=== PATIENT | female | born 1995 | race African-American/Black ===

== ENCOUNTER 2018-08-06 12:36 | Emergency (ER) | payer MEDICAID ==
[~2018-08-06] VITALS: Ht 162.6 cm; Wt 50.0 kg
[2018-08-06 12:39] VITALS: BP 110/75
[2018-08-06] MEDS ORDERED: DIPHENHYDRAMINE 50MG CAPSULE PO ONE (13:30)
[2018-08-06 14:14] LABS: BASOPHILS % 1.1 % (0.0-2.0); EOSINOPHILS % 3.4 % (0.0-5.0); HEMOGLOBIN. 13.7 g/dL (12.0-16.0); LYMPHOCYTES % 39.3 % (20.0-50.0); MEAN CORPUSCULAR HEMOGLOBIN 26.4 pg (28.0-32.0); MEAN PLATELET VOLUME 9.3 fl (7.4-10.4); MONOCYTES % 7.8 % (2.0-8.0); NEUTROPHILS % 48.4 % (40.0-76.0); PLATELET 245 x1000/uL (130-400); RED BLOOD CELL COUNT 5.19 mill/uL (4.2-5.4); RED CELL DISTRIBUTION WIDTH 14.2 % (11.6-14.6)
[2018-08-06 14:17] LABS: CLARITY URINE CLEAR (CLEAR); COLOR URINE YELLOW (YELLOW); KETONES URINE NEGATIVE (NEGATIVE); LEUKOCYTE ESTERASE URINE NEGATIVE (NEGATIVE); NITRITE URINE NEGATIVE (NEGATIVE); OCCULT BLOOD URINE TRACE (NEGATIVE); PROTEIN URINE NEGATIVE (NEGATIVE); SPECIFIC GRAVITY URINE 1.004 (1.005-1.030); UROBILINOGEN URINE 0.2 E.U./dL (0.2-1.0)
[2018-08-06 14:21] LABS: CHLORIDE 105 mEq/L (98-107)
[2018-08-06 15:53] LABS: *AMPHETAMINES SCREEN URINE NEGATIVE (NEGATIVE); *BARBITURATES SCREEN URINE NEGATIVE (NEGATIVE); *BENZODIAZEPINES SCREEN URINE NEGATIVE (NEGATIVE)
[2018-08-06 15:54] LABS: *COCAINE SCREEN URINE NEGATIVE (NEGATIVE); CANNABINOID URINE SCREEN NEGATIVE (NEGATIVE); METHADONE URINE SCREEN NEGATIVE (NEGATIVE); OPIATES URINE SCREEN NEGATIVE (NEGATIVE); PHENCYCLIDINE URINE SCREEN NEGATIVE (NEGATIVE)
== END 2018-08-06 16:07 | disposition home or self-care (01) ==
LOC: ER 12:36
DX: F41.9 Anxiety disorder, unspecified (principal)
CPT/HCPCS: 36415; 71045; 80048; 80305; 81025; 84443; 93005; 99284; Q0163

== ENCOUNTER 2019-07-28 09:03 | Emergency (ER) | payer OTHER ==
[~2019-07-28] VITALS: Ht 162.6 cm; Wt 51.0 kg
[2019-07-28] MEDS ORDERED: IBUPROFEN 600MG TABLET PO ONE (09:30)
[2019-07-28] MEDS ORDERED: BACITRACIN ZINC OINT UDPKT TOP ONE (09:30)
[2019-07-28 10:01] VITALS: BP 115/71
== END 2019-07-28 10:03 | disposition home or self-care (01) ==
LOC: ER 09:03
DX: S10.93XA Contusion of unspecified part of neck, initial encounter (principal); T23.101A Burn of first degree of right hand, unspecified site, initial encounter; F12.10 Cannabis abuse, uncomplicated; V49.88XA Car occupant (driver) (passenger) injured in other specified transport accidents, initial encounter; Y93.89 Activity, other specified; Y92.89 Other specified places as the place of occurrence of the external cause; Y99.8 Other external cause status
CPT/HCPCS: 16020; 81025; 99284; Z7610; 16000; 99283